=== PATIENT | female | born 1960 | race Caucasian/White ===

== ENCOUNTER → 2016-07-02 | Outpatient (CLI) | payer OTHER ==
--- NOTE | 2016-07-02 15:04 | DX ---
Chest, Two Views - July 02, 2016, at 1408 hours History: Persistent cough, shortness of breath. Comparison: October 2015. Findings: Cardiac silhouette is within normal range. No pneumonia, congestive heart failure, pleura l effusion, or pneumothorax. Bilateral peribronchial thickening. Impression: 1. Bronchitis. 2. No definite pneumonia. Findings and recommendations discussed with the pharmacy sales assistant of NATAL[facility] De Jesus at 1500 hours today .
== END ==
LOC: BMCIMAGING 14:07
PROVIDERS: ATTEND Nurse Practitioner Adult Health
DX: J40 Bronchitis, not specified as acute or chronic (principal)

== ENCOUNTER 2017-02-06 17:29 | Observation (INO) | payer OTHER ==
--- NOTE | 2017-02-06 17:50 | CPEKG ---
Heart Rate: 77 RR Interval: 779 P-R Interval: 260 QRSD Interval: 136 QT Interval: 440 QTC Interval: 499 P [place]: 36 QRS [place]: 69 T Wave [place]: 21 EKG Severity - ABNORMAL ECG - EKG Impression: SINUS RHYTHM EKG Impression: FIRST DEGREE AV BLOCK EKG Impression: RIGHT BUNDLE BRANCH BLOCK Electronically Signed By: Rachana Louis 06-Feb-2017 21:58:46
[2017-02-06 18:01] LABS: % IMMATURE GRANULYOCYTES 0.3 % (0.0-1.1); ABSOLUTE IMMATURE GRANULOCYTES 0.02 10^3/uL (0.00-0.10); ADD DIFF? NO; ADD MORPH? NO; ADD SCAN? NO; ATYPICAL LYMPHOCYTE FLAG 20 (0-99); FRAGMENT RBC FLAG 0 (0-99); HEMATOCRIT 44.4 % (38.0-47.0); HEMOGLOBIN 14.8 g/dL (12.6-16.3); LEFT SHIFT FLG 0 (0-99); LIPEMIA HEMOLYSIS FLAG 80 (0-99); MEAN CELL HEMOGLOBIN 32.2 pg (27.9-34.1); MEAN CELL HEMOGLOBIN CONCENTR. 33.3 g/dL (32.4-36.7); MEAN CELL VOLUME 96.7 fL (81.5-99.8); PLATELET CLUMPS FLAG 0 (0-99); PLATELET COUNT 315 10^3/uL (150-400); RED BLOOD CELL COUNT 4.59 10^6/uL (4.18-5.33); RED CELL DISTRIBUTION WIDTH 12.2 % (11.5-15.2)
[2017-02-06 18:07] LABS: ANION GAP 16 mEq/L (8-16); CALCIUM 9.8 mg/dL (8.5-10.4); CARBON DIOXIDE 20 mEq/l (22-31); CHLORIDE 102 mEq/L (97-110); CREATININE 0.7 mg/dL (0.6-1.0); GLOMERULAR FILTRATION RATE > 60; GLUCOSE 99 mg/dL (70-100); POTASSIUM 3.8 mEq/L (3.5-5.2); SODIUM 138 mEq/L (134-144)
[2017-02-06 18:19] LABS: TROPONIN I < 0.012 ng/mL (0-0.034)
--- NOTE | 2017-02-06 18:27 | EDPHY ---
H & P Time Seen by Provider: 02/06/17 17:49 HPI/ROS: CHIEF COMPLAINT: Chest pain HISTORY OF PRESENT ILLNESS: This patient is a healthy 56 year old female complaining of chest pain onset around 3:30 today, three hours ago. Last week, she had a similar episode while walking in [facility]. She describes the pain as pressure in the middle of her chest. The pain lasted for a couple hours, but she attributed it to altitude. Today, she felt the same thing while sitting at her desk. She took her albuterol inhaler with no relief. She has never felt pressure like this before, and rates her discomfort at 6-7/10. The pressure is constant, and nothing makes it better or worse. It does not seem to increase with exertion. She endorses dizziness, shortness of breath, bad indigestion, headache, and fatigue. She felt some indigestion yesterday as well, and took omeprazole. She has family history of congenital heart disease in her mother, sister, niece, and uncle, but she has been tested in the past and is negative for this. She has no personal history of hypertension, diabetes, or hyperlipidemia. She does not smoke. REVIEW OF SYSTEMS: A 10 point review of systems was performed and is negative with the exception of the elements mentioned in the history of present illness. Past Medical/Surgical History: Mild asthma. Hysterectomy. Back fracture. Left knee surgery. Social History: . Lives in [place]. Works for [employer]. Smoking Status: Never smoked Physical Exam: General Appearance: Alert, no distress Eyes: Pupils equal and round, no conjunctival pallor or injection ENT, Mouth: Mucous membranes moist Neck: Normal inspection Respiratory: Lungs are clear to auscultation Cardiovascular: Regular rate and rhythm Gastrointestinal: Abdomen is soft and non- tender Neurological: A&O, nonfocal, normal gait Skin: Warm and dry, no rash Extremities: Nontender, no pedal edema Psychiatric: Mood and affect normal Constitutional: Initial Vital Signs Temperature (C) 36.3 C 02/06/17 17:36 Heart Rate 77 02/06/17 17:36 Respiratory Rate 22 H 02/06/17 17:36 Blood Pressure 154/93 H 02/06/17 17:36 O2 Sat (%) 100 02/06/17 17:36 O2 Delivery Mode Room Air Allergies/Adverse Reactions: fluconazole [From Diflucan] Allergy (Mild, Verified 02/06/17 17:36) RASH ON HANDS Home Medications: Medication Instructions Recorded Acyclovir [Zovirax 400 mg (*)] 400 mg PO TID PRN 02/06/17 Albuterol Sulfate [Proair Hfa] 1 - 2 puffs IH Q4-6PRN PRN 02/06/17 Omeprazole [Prilosec 20 mg] 20 mg PO DAILY PRN 02/06/17 Medical Decision Making - Diagnostics EKG Interpretation: EKG interpreted by me reveals sinus rhythm, rate 77, right bundle branch block, first degree AV block. Interpretation: abnormal EKG Imaging Results: Imaging Impressions Chest X-Ray 02/06/17 17:50 Impression: Normal chest. ED Course/Re-evaluation: 56 year old female presents following two episodes of chest pressure with associated dizziness, shortness of breath, and indigestion. Clinical presentation concerning for acute coronary syndrome. Stat EKG reveals no evidence of ischemia or dysrhythmia. Plan for labs including CBC, BMP, and Troponin. Aspirin given. Troponin negative, chest x-ray normal, EKG shows right bundle branch block. Patient continues to have chest pressure. Recommended admission for continued evaluation. 17:10 Dr. Collado accepts admission to PCU for cardiac observation and evaluation. Differential Diagnosis: Differential diagnosis includes though it is not limited to pneumonia, pneumothorax, pulmonary embolism, aortic dissection, pericarditis, acute coronary syndrome. - Data Points Laboratory Results: Laboratory Results 02/06/17 17:45 02/06/17 17:45 02/06/17 02/06/17 17:45 17:45 WBC 7.42 10^3/uL 10^3/uL (3.80-9.50) RBC 4.59 10^6/uL 10^6/uL (4.18-5.33) Hgb 14.8 g/dL g/dL (12.6-16.3) Hct 44.4 % % (38.0-47.0) MCV 96.7 fL fL (81.5-99.8) MCH 32.2 pg pg (27.9-34.1) MCHC 33.3 g/dL g/dL (32.4-36.7) RDW 12.2 % % (11.5-15.2) Plt Count 315 10^3/uL 10^3/uL (150-400) MPV 10.0 fL fL (8.7-11.7) Neut % (Auto) 49.0 % % (39.3-74.2) Lymph % (Auto) 38.8 % % (15.0-45.0) [place] % (Auto) 8.6 % % (4.5-13.0) Eos % (Auto) 2.6 % % (0.6-7.6) Baso % (Auto) 0.7 % % (0.3-1.7) Nucleat RBC Rel Count 0.0 % % (0.0-0.2) Absolute Neuts (auto) 3.64 10^3/uL 10^3/uL (1.70-6.50) Absolute Lymphs (auto) 2.88 10^3/uL 10^3/uL (1.00-3.00) Absolute Monos (auto) 0.64 10^3/uL 10^3/uL (0.30-0.80) Absolute Eos (auto) 0.19 10^3/uL 10^3/uL (0.03-0.40) Absolute Basos (auto) 0.05 10^3/uL 10^3/uL (0.02-0.10) Absolute Nucleated RBC 0.00 10^3/uL 10^3/uL (0-0.01) Immature Gran % 0.3 % % (0.0-1.1) Immature Gran # 0.02 10^3/uL 10^3/uL (0.00-0.10) Sodium 138 mEq/L mEq/L (134-144) Potassium 3.8 mEq/L mEq/L (3.5-5.2) Chloride 102 mEq/L mEq/L (97-110) Carbon Dioxide 20 mEq/l L mEq/l (22-31) Anion Gap 16 mEq/L mEq/L (8-16) BUN 17 mg/dL mg/dL (7-23) Creatinine 0.7 mg/dL mg/dL (0.6-1.0) Estimated GFR > 60 Glucose 99 mg/dL mg/dL (70-100) Calcium 9.8 mg/dL mg/dL (8.5-10.4) Troponin I < 0.012 ng/mL ng/mL (0-0.034) Medications Given: Metoprolol Tartrate (Lopressor) 25 mg PO BID [facility] Stop: 08/05/17 20:59 Last Admin: 02/06/17 20:49 Dose: 25 mg Nitroglycerin (Nitrostat) 0.4 mg SL EDNOW PRN PRN Reason: Chest Pain Stop: 02/08/17 19:48 Last Admin: 02/06/17 20:37 Dose: 0.4 mg Pantoprazole Sodium (Protonix) 40 mg PO BID [facility] Stop: 08/05/17 20:59 Last Admin: 02/06/17 20:49 Dose: 40 mg Discontinued Medications Al Hydroxide/Mg Hydroxide (Maalox Susp) 30 ml PO ONCE ONE Stop: 02/06/17 18:40 Last Admin: 02/06/17 18:50 Dose: 30 ml Aspirin (Aspirin) 324 mg PO EDNOW ONE Stop: 02/06/17 18:40 Last Admin: 02/06/17 18:49 Dose: 324 mg Hyoscyamine Sulfate (Levsin, Hyomax-Sl) 0.25 mg PO ONCE ONE Stop: 02/06/17 18:40 Last Admin: 02/06/17 18:49 Dose: 0.25 mg Lidocaine (Lidocaine 2% Viscous) 15 ml PO ONCE ONE Stop: 02/06/17 18:40 Last Admin: 02/06/17 18:50 Dose: 15 ml Departure - Departure Disposition: [facility] Inpatient Acute Clinical Impression: Chest pain Qualifiers: Chest pain type: other chest pain Qualified Code(s): R07.89 - Other chest pain Condition: Fair Report Scribed for: Rachana Louis Report Scribed by: Renita Lane Date of Report: 02/06/17 Time of Report: 18:24 Physician Review and Approval Statement: 02/06/17 18:24 Portions of this note were transcribed by a medical i d sales. I personally performed a history, physical exam, medical decision making, and confirmed accuracy of information the transcribed note.
[2017-02-06] MEDS ORDERED: LIDOCAINE 2% VISCOUS 15 ML UDCUP PO ONE (18:39)
[2017-02-06] MEDS ORDERED: HYOSCYAMINE SULFATE 0.125 MG TAB PO ONE (18:39)
[2017-02-06] MEDS ORDERED: ASPIRIN 81 MG CHEWABLE TAB PO ONE (18:39)
[2017-02-06] MEDS ORDERED: MAG HYDROX/AL HYDROX/SIMETH 30 ML UDCUP PO ONE (18:39)
--- NOTE | 2017-02-06 18:49 | CPEKG ---
Heart Rate: 75 RR Interval: 800 P-R Interval: 272 QRSD Interval: 132 QT Interval: 432 QTC Interval: 483 P [place]: 44 QRS [place]: 74 T Wave [place]: 27 EKG Severity - ABNORMAL ECG - EKG Impression: SINUS RHYTHM EKG Impression: FIRST DEGREE AV BLOCK EKG Impression: RIGHT BUNDLE BRANCH BLOCK Electronically Signed By: Rachana Louis 06-Feb-2017 21:58:36
--- NOTE | 2017-02-06 19:44 | PDGENHP ---
History and Physical - Chief Complaint Chest pain - History of Present Illness this is a 56-year-old female extensive family history for coronary artery disease including an MO in her sister a heart attack at age 37 who presents to the emergency department with chest pain. The pain began at 3:30 a.m. this afternoon while sitting at her desk at work. It was described as 6 to 7/10 and pressure over the middle of her chest that did not radiate. The pain is been constant since the onset. Does not seem to change with exertion. She does have some mild shortness of breath. She also states that she has been having some heartburn indigestion over the past week. She has been taking over- the-counter Prilosec for this. Also to note she developed episode of similar chest pain a week ago while in [place]. The pain lasted for 30 minutes and self-resolved. She has undergone stress testing in the past but her last study was about 4 years ago at the [facility]. History Information - Allergies/Home Medication List Allergies/Adverse Reactions: fluconazole [From Diflucan] Allergy (Mild, Verified 02/06/17 17:36) RASH ON HANDS Home Medications: Albuterol 10/05/15 [Last Taken Unknown] I have personally reviewed and updated: family history, medical history, social history, surgical history - Past Medical History GERD - Surgical History Reports: hysterectomy Additional surgical history: Left knee surgery - Family History Positive for: CAD ( coronary artery disease in maternal grandmother mother and sister. Her sister at age 37) Additional family history: Mccarthy -Bárbara syndrome - Social History Smoking Status: Never smoked Alcohol Use: None Drug Use: None Review of Systems ROS: 10pt was reviewed & negative except for what was stated in HPI & below Physical Exam Temp Pulse Resp BP Pulse Ox 36.3 C 80 15 154/93 H 96 02/06/17 17:36 02/06/17 18:51 02/06/17 18:51 02/06/17 17:36 02/06/17 18:51 Constitutional: no apparent distress, appears nourished, not in pain Eyes: PERRL, anicteric sclera, EOMI Ears, Nose, Mouth, Throat: moist mucous membranes, hearing normal, ears appear normal, no oral mucosal ulcers Cardiovascular: regular rate and rhythym, no murmur, rub, or gallop, No edema Respiratory: no respiratory distress, no rales or rhonchi, clear to auscultation Gastrointestinal: normoactive bowel sounds, soft, non-tender abdomen, no palpable masses Genitourinary: no bladder fullness, no bladder tenderness Skin: warm, normal color, no rashes or abrasions, no fluctuance, no induration, No mottled Musculoskeletal: full muscle strength, no muscle tenderness, normal joint ROM, no joint effusions Neurologic: AAOx3, CN II-XII Intact, No facial droop Psychiatric: interacting appropriately, not anxious, not encephalopathic, thought process linear Lymph, Heme, Immunologic: no cervical LAD, no supraclavicular LAD Lab Data & Imaging Review 02/06/17 17:45 02/06/17 17:45 WBC 7.42 10^3/uL (3.80-9.50) 02/06/17 17:45 RBC 4.59 10^6/uL (4.18-5.33) 02/06/17 17:45 Hgb 14.8 g/dL (12.6-16.3) 02/06/17 17:45 Hct 44.4 % (38.0-47.0) 02/06/17 17:45 MCV 96.7 fL (81.5-99.8) 02/06/17 17:45 MCH 32.2 pg (27.9-34.1) 02/06/17 17:45 MCHC 33.3 g/dL (32.4-36.7) 02/06/17 17:45 RDW 12.2 % (11.5-15.2) 02/06/17 17:45 Plt Count 315 10^3/uL (150-400) 02/06/17 17:45 MPV 10.0 fL (8.7-11.7) 02/06/17 17:45 Neut % (Auto) 49.0 % (39.3-74.2) 02/06/17 17:45 Lymph % (Auto) 38.8 % (15.0-45.0) 02/06/17 17:45 [place] % (Auto) 8.6 % (4.5-13.0) 02/06/17 17:45 Eos % (Auto) 2.6 % (0.6-7.6) 02/06/17 17:45 Baso % (Auto) 0.7 % (0.3-1.7) 02/06/17 17:45 Nucleat RBC Rel Count 0.0 % (0.0-0.2) 02/06/17 17:45 Absolute Neuts (auto) 3.64 10^3/uL (1.70-6.50) 02/06/17 17:45 Absolute Lymphs (auto) 2.88 10^3/uL (1.00-3.00) 02/06/17 17:45 Absolute Monos (auto) 0.64 10^3/uL (0.30-0.80) 02/06/17 17:45 Absolute Eos (auto) 0.19 10^3/uL (0.03-0.40) 02/06/17 17:45 Absolute Basos (auto) 0.05 10^3/uL (0.02-0.10) 02/06/17 17:45 Absolute Nucleated RBC 0.00 10^3/uL (0-0.01) 02/06/17 17:45 Immature Gran % 0.3 % (0.0-1.1) 02/06/17 17:45 Immature Gran # 0.02 10^3/uL (0.00-0.10) 02/06/17 17:45 Sodium 138 mEq/L (134-144) 02/06/17 17:45 Potassium 3.8 mEq/L (3.5-5.2) 02/06/17 17:45 Chloride 102 mEq/L (97-110) 02/06/17 17:45 Carbon Dioxide 20 mEq/l (22-31) L 02/06/17 17:45 Anion Gap 16 mEq/L (8-16) 02/06/17 17:45 BUN 17 mg/dL (7-23) 02/06/17 17:45 Creatinine 0.7 mg/dL (0.6-1.0) 02/06/17 17:45 Estimated GFR > 60 02/06/17 17:45 Glucose 99 mg/dL (70-100) 02/06/17 17:45 Calcium 9.8 mg/dL (8.5-10.4) 02/06/17 17:45 Troponin I < 0.012 ng/mL (0-0.034) 02/06/17 17:45 Visualized and Interpreted Chest x-ray results: Yes Chest X-Ray results: normal Visualized and Interpreted EKG results: Yes EKG Interpretation: Positive for: other ( right bundle branch block) EKG additional interpertation: normal sinus rhythm with first-degree AV block rate 75 beats per minute no acute ischemic changes Assessment & Plan Assessment: this is a 56-year-old female with extensive family history of coronary artery disease presenting with: # chest pain that sounds to be atypical given its duration. However given her extensive family history for heart disease I think it is reasonable to bring her into the hospital for further evaluation. Her pain does sound more likely to be due to GERD. Plan: - place observation - monitor on telemetry - cycle troponins - increase dose of PPI - check D-dimer - treadmill stress test in the morning if chest pain is resolved and troponins are negative
[2017-02-06] MEDS ORDERED: ACETAMINOPHEN 325 MG TAB PO PRN (19:47)
[2017-02-06] MEDS ORDERED: ONDANSETRON 4 MG/2 ML VIAL IVP PRN (19:47)
[2017-02-06] MEDS ORDERED: ACYCLOVIR 400 MG TAB PO PRN (19:57)
[2017-02-06] MEDS ORDERED: ALBUTEROL 200 PUFFS/18 GM MDI IH PRN (19:57)
[2017-02-06 20:22] LABS: CHOLESTEROL 286 mg/dL (140-220); CHOLESTEROL/HDL RATIO 3.81 RATIO (1.00-4.44); HIGH DENSITY LIPOPROTEIN 75 mg/dL (40-85); LDL/HDL RATIO 2.48 RATIO (1.00-3.22); LOW DENSITY LIPOPROTEIN 186 mg/dL (80-100); NON-HIGH DENSITY LIPOPROTEIN 211 mg/dL (90-129); TRIGLYCERIDE 127 mg/dL (35-135); VERY LOW DENSITY LIPOPROTEINS 25 mg/dL (8-25)
[2017-02-06] MEDS: NITROGLYCERIN 0.4 MG BTL SL PRN ×2 (20:29→20:37)
[2017-02-06] MEDS: METOPROLOL TARTRATE 25 MG TAB PO SCH (20:49)
[2017-02-06] MEDS: PANTOPRAZOLE SODIUM 40 MG TAB PO SCH (20:49)
--- NOTE | 2017-02-07 01:32 | CPEKG ---
Heart Rate: 61 RR Interval: 984 P-R Interval: 292 QRSD Interval: 126 QT Interval: 468 QTC Interval: 472 P [place]: 62 QRS [place]: 82 T Wave [place]: 48 EKG Severity - ABNORMAL ECG - EKG Impression: SINUS RHYTHM EKG Impression: FIRST DEGREE AV BLOCK EKG Impression: RIGHT BUNDLE BRANCH BLOCK Electronically Signed By: Nomi Martinez 07-Feb-2017 07:24:24
[2017-02-07 08:09] VITALS: RESP 18
[2017-02-07] MEDS: PANTOPRAZOLE SODIUM 40 MG TAB PO SCH (10:20)
[2017-02-07] MEDS: METOPROLOL TARTRATE 25 MG TAB PO SCH (10:23)
[2017-02-07 11:00] VITALS: BP 111/74; PULSE 72; TEMP 98.5; O2SAT 93
--- NOTE | 2017-02-07 14:42 | CPR ---
[f rep st] NONINVASIVE CARDIAC PROCEDURE REPORT DATE OF PROCEDURE: 02/07/2017 PROCEDURE: Exercise treadmill test. INDICATION: The patient is a 56-year-old female with a history of light tobacco use and family hist ory of congenital heart disease. About a week ago, she was hiking at altitude when she developed ch est pressure, which she describes as a book sitting on her chest. This lasted for approximately 5-6 hours and only improved after she came down from altitude. She did note that her discomfort seemed to improve as she was driving down the hill. She then had another episode of chest discomfort whdavida e sitting at work yesterday. It lasted for 3-4 hours. She does have a history of asthma and tried her inhaler, which did not seem to make any improvement in her discomfort. She ultimately presented to the hospital, at which time she was given 2 nitroglycerin with some improvement but not complete resolution in her pain. PROCEDURE IN DETAIL: Consent was obtained, and the patient was placed on continuous telemetry. Her resting EKG revealed normal sinus rhythm with a heart rate of 63, first-degree AV block with a prol onged AK interval of 232. Her QRS duration was prolonged as well to 102 with evidence of an incompl ete right bundle branch block. Her resting EKG was nonischemic. The patient walked on the treadmil l for 7 minutes and 20 seconds. The exercise portion of the study was discontinued secondary to saira rtness of breath and overall fatigue. She remained in normal sinus rhythm throughout the study. Cami nick developed more of a nonspecific intraventricular conduction delay with exercise, but there were no diagnostic ST-T wave changes to suggest ischemia. She did complain of 3/4 chest discomfort prior t o exercise. Her discomfort improved while on the treadmill and in recovery. It reduced to 2/3 disc omfort. Her blood pressure at rest was 126/66 and peaked at 166/70. PLAN: The patient does have a nonspecific intraventricular conduction delay, which was present thro ughout the study. She complained of chest discomfort prior to exercise and actually improved post e xercise. Her treadmill test was negative for diagnostic ST-T wave changes to suggest ischemia. If her discomfort persists despite therapy for reflux and asthma, consider a more sophisticated study, such as a nuclear stress test, given her significant symptoms of chest discomfort. /[id number]/MODL
--- NOTE | 2017-02-07 19:02 | GDS ---
[f rep st] DISCHARGE SUMMARY DISCHARGE DIAGNOSES: Include: 1. Acute chest pain. 2. Suspected gastritis versus reflux. HISTORY OF PRESENT ILLNESS: This is a 56-year-old female who presents for new chest pain. For deta ils of patient's initial presentation, please see the history and physical dated 02/06/2017. CONSULTATIVE SERVICES: None. PROCEDURES: Include a graded treadmill stress test which showed no acute ischemic changes. HOSPITAL COURSE: By issue: Acute chest pain. Patient presented with a burning type chest pain which she not infrequently assoc iates with meals. She was admitted to the PCU, ruled out with serial troponins and EKG and taken fo r treadmill testing the morning after admission. Patient successfully completed the treadmill protoc ol without symptoms or EKG changes. We have recommended, based on the burning nature of the pain pe riodically and its association with food, that she initiate a daily proton pump inhibitor and follow with her outpatient provider. Suspect likely she will require outpatient Gastroenterology follow u p for more diagnostic evaluation related to her chest symptoms. MEDICATIONS AT THE TIME OF DISPOSITION: Please reference the med rec printed on 02/07/2017. FOLLOWUP APPOINTMENTS: Include with her PCP, Dr. Martinez, as well as with Gastroenterology if ref erred by her PCP. PENDING STUDIES: At the time of this dictation are none. /[id number]/MODL
== END 2017-02-07 14:00 | disposition home or self-care (01) ==
LOC: F2W 20:04
PROVIDERS: ADMIT Family Medicine; ATTEND Hospitalist
DX: R07.9 Chest pain, unspecified (principal); J45.909 Unspecified asthma, uncomplicated; Z82.49 Family history of ischemic heart disease and other diseases of the circulatory system
CPT/HCPCS: 71020; 93005; 93017; 99285; G0378; J2405

== ENCOUNTER → 2017-10-09 | Outpatient (CLI) | payer OTHER | LOC: BMCIMAGING 09:39 | PROVIDERS: ATTEND Internal Medicine Rheumatology | DX: M25.571 Pain in right ankle and joints of right foot (principal); M25.572 Pain in left ankle and joints of left foot ==

== ENCOUNTER → 2018-08-21 | Outpatient (CLI) | payer OTHER | LOC: BRMIMAGING 09:46 | PROVIDERS: ATTEND Physician Assistant Medical | DX: N64.4 Mastodynia (principal) | CPT/HCPCS: 76641-PO ==

== ENCOUNTER → 2018-11-30 | Outpatient (CLI) | payer OTHER | LOC: BMCIMAGING 14:02 ==